=== PATIENT | female | born 1980 | race African-American/Black ===

== ENCOUNTER 2018-02-15 15:01 | Inpatient (IN) ==
[~2018-02-15 15:01] MED LIST: Ketorolac Inj 30 MG/ML (IVP) Vial IV.PUSH ONE; Phenylephrine/NS 1000 MCG/10ML Syringe IV.PUSH ONE
--- NOTE | 2018-02-15 15:28 | P.HPOB ---
History of Present Illness Primary Care Physician: Shabana Donahue MD Chief Complaint: contractions History of Present Illness: 38 yo with iup at 38w6d here for ob visit in office noted to have decreased movements and contractions. BPP 6/8, no breathing movements. SVE 3-4/50/-2, change from last week. PT was scheduled for primary cd for macrosomia, 6 lb 10 oz at 35 weeks; extrapolation would estimate 8 lb 10oz. Weeks Gestation:: 38 Para: 2 : 3 - Inpatient Certification I certify that the inpatient services were ordered in accordance with Medicare regulations governing the order. This includes certification that hospital inpatient services are reasonable and necessary and in the case of services not specified as inpatient-only under 42 CFR 419.22(n), that they are appropriately provided as inpatient services in accordance to with the 2-midnight benchmark under 43 CFR 412.3(e) Estimated Total Length of Stay (Days): 3 Plans for Post Hospital Care: Home Review of Systems All other systems reviewed negative except as stated in HPI Constitutional: Denies body ache(s), Denies chills Eyes: Denies blind spots, Denies blurry vision PMFSH - Tobacco History Second Hand Smoke Exposure: No Tobacco Use In Past 30 Days: No - Alcohol History How Often Do You Have a Drink Containing Alcohol: Never - Substance Use History Substance History: No History of Abuse - Travel History History of Recent Travel: No Recent Travel in the [place] Within the Last 8 Weeks: No Recent Travel Out of the Country Within the Last 8 Weeks: No Medications and Allergies Active Medications: Active Medications Cefazolin Sodium 2,000 mg/ (Sodium Chloride) 100 mls @ 200 mls/hr IV.SIG RANGER AIDE DENA Stop: 02/19/18 15:59 Allergies Allergy/AdvReac Type Severity Reaction Status Date / Time shellfish derived Allergy Severe ITCHING , Verified 01/28/18 18:32 swelling strawberry Allergy Severe Itching Verified 01/28/18 18:37 tomato Allergy Severe Itching, Verified 01/28/18 18:37 swelling tramadol Allergy Severe VOMITTING Verified 01/28/18 18:32 Home Medications Medication Instructions Recorded Confirmed Type PNV cmb#95-ferrous fumarate-FA 1 tab PO DAILY 02/15/18 02/15/18 History [] ranitidine HCl [Zantac] 150 mg PO BID 02/15/18 02/15/18 History Exam Vital signs: Vital Signs Pulse Resp BP 02/15/18 15:21 107 H 18 139/79 - Constitutional no acute distress - Routine HEENT Exam Head: Present: normocephalic Eye: Present: EOMI ENT: Present: mucous membranes moist - Routine Neck Exam Present: full ROM - Routine Chest/Breast/Axilla Exam Chest wall: Absent: tenderness - Routine Respiratory Exam Absent: accessory muscle use - Routine Cardiovascular Exam Present: RRR - Routine Abdominal Exam Absent: tenderness - Routine Extremities Exam Present: edema. Absent: cyanosis, clubbing, Rio's sign Results - Labs CBC & Chem 7: 02/15/18 15:30 Caprini VTE Risk Assessment Caprini VTE Risk Assessment: No/Low Risk (score <= 1) Caprini Risk Assessment Model: Point Value = 1 Point Value = 2 Point Value = 3 Point Value = 5 Age 41-60 Minor surgery BMI > 25 kg/m2 Swollen legs Varicose veins or History of unexplained or recurrent spontaneous Oral contraceptives or hormone replacement Sepsis (< 1 month) Serious lung disease, including pneumonia (< 1 month) Abnormal pulmonary function Acute myocardial infarction Congestive heart failure (< 1 month) History of inflammatory bowel disease Medical patient at bed rest Age 61-74 Arthroscopic surgery Major open surgery (> 45 min) Laparoscopic surgery (> 45 min) Malignancy Confined to bed (> 72 hours) Immobilizing plaster cast Central venous access Age >= 75 History of VTE Family history of VTE Factor V Leiden Prothrombin [id number] Lupus anticoagulant Anticardiolipin antibodies Elevated serum homocysteine Heparin-induced thrombocytopenia Other congenital or acquired thrombophilia Stroke (< 1 month) Elective arthroplasty Hip, pelvis, or leg fracture Acute spinal cord injury (< 1 month) Prophylaxis Regimen: Total Risk Factor Score Risk Level Prophylaxis Regimen 0-1 Low Early ambulation 2 Moderate Order ONE of the following: *Sequential Compression Device (SCD) *Heparin 5000 units SQ BID 3-4 Higher Order ONE of the following medications: *Heparin 5000 units SQ TID *Enoxaparin/Lovenox 40 mg SQ daily (WT < 150 kg, CrCl > 30 mL/min) *Enoxaparin/Lovenox 30 mg SQ daily (WT < 150 kg, CrCl > 10-29 mL/min) *Enoxaparin/Lovenox 30 mg SQ BID (WT < 150 kg, CrCl > 30 mL/min) AND/OR *Sequential Compression Device (SCD) 5 or more Highest Order ONE of the following medications: *Heparin 5000 units SQ TID (Preferred with Epidurals) *Enoxaparin/Lovenox 40 mg SQ daily (WT < 150 kg, CrCl > 30 mL/min) *Enoxaparin/Lovenox 30 mg SQ daily (WT < 150 kg, CrCl > 10-29 mL/min) *Enoxaparin/Lovenox 30 mg SQ BID (WT < 150 kg, CrCl > 30 mL/min) AND *Sequential Compression Device (SCD) Assessment and Plan - Diagnosis (1) Labor and delivery indication for care or intervention Code(s): O75.9 - Complication of labor and delivery, unspecified; J45.909 - Unspecified asthma, uncomplicated Status: Acute (2) Advanced maternal age (AMA) in Code(s): F41.9 - Anxiety disorder, unspecified Status: Acute (3) Anxiety Code(s): F41.9 - Anxiety disorder, unspecified Status: Chronic (4) Asthma Code(s): J45.909 - Unspecified asthma, uncomplicated Status: Chronic - Plan 38 yo with iup at 386d in labor. Desires primary CD due to suspected macrosomia. Was scheduled for tomorrow. Will proceed today with cd. She additionally has had decreased movement and bpp was 6/8 in the office today. AMA neg cfDNA nl anatomy u/s Anxiety- watch for pp anxiety/depression. Previously on citalopram Asthma- mild intermittent, albuterol prn reflux - zantac Proteinuria with no documented elevated BP GBS neg (4) Asthma Qualifiers: Asthma severity: mild Asthma persistence: intermittent Asthma complication type: uncomplicated Qualified Code(s): J45.20 - Mild intermittent asthma, uncomplicated
[2018-02-15] MEDS ORDERED: Citric Acid/Sodium Citrate Liq 30 ML UDC PO SCH (15:30)
[2018-02-15] MEDS ORDERED: ceFAZolin Inj 2,000 MG in Sodium Chlor 0.9% Inj 80 ML IV.SIG SCH (16:00)
[2018-02-15 16:09] LABS: Baso % (Auto) 0.4 % (0.0-2.0); Eos # (Auto) 0.1 th/mm3 (0.0-0.4); Eos % (Auto) 1.1 % (0.0-4.0); Hematocrit 39.7 % (35.0-46.0); Hemoglobin 13.6 gm/dL (11.6-15.3); Lymph # (Auto) 1.9 th/mm3 (1.0-4.8); Lymph % (Auto) 23.3 % (9.0-44.0); Mean Corpuscular HGB Conc 34.2 % (32.0-36.0); Mean Corpuscular Hemoglobin 30.5 pg (27.0-34.0); Mean Corpuscular Volume 89.1 fL (80.0-100.0); Mono # (Auto) 0.6 th/mm3 (0.0-0.9); Mono % (Auto) 7.8 % (0.0-8.0); Neut # (Auto) 5.5 th/mm3 (1.8-7.7); Neut % (Auto) 67.4 % (16.0-70.0); Platelet Count 223 th/mm3 (150-450); Red Blood Count 4.46 mil/mm3 (4.00-5.30); Red Cell Distribution Width 13.5 % (11.6-17.2); White Blood Count 8.2 th/mm3 (4.0-11.0)
[2018-02-15] MEDS ORDERED: Morphine Sulfate PF Inj 5 MG/10 ML Ampul ONE (16:55)
[2018-02-15 18:05] LABS: Amphetamine Screen,Urine Neg (Neg); Bacteria,Urine Rare /hpf; Barbiturate Screen,Urine Neg (Neg); Bilirubin,Urine Negative (Negative); Cannabinoid Screen,Urine Neg (Neg); Clarity,Urine Clear (Clear); Cocaine Screen,Urine Neg (Neg); Color,Urine Yellow (Yellw/Straw); Glucose,Urine (UA) Negative (Negative); Leukocyte Esterase,Urine Negative (Negative); Nitrite,Urine Negative (Negative); Squamous Epithelial Cell,Urine 3 /hpf (0-5)
[2018-02-15 18:18] LABS: Opiate Screen,Urine Neg (Neg)
[2018-02-15] MEDS ORDERED: Zolpidem Tartrate 5 MG Tablet PO PRN (18:25)
[2018-02-15] MEDS ORDERED: Oxytocin 30 Units/500ml Premix 30 UNITS/500 ML BAG IV.SIG ONE (18:25)
[2018-02-15] MEDS ORDERED: Simethicone 80 MG Chew Tablet PO PRN (18:25)
--- NOTE | 2018-02-15 18:30 | P.OBDELI ---
Procedure Note Performed by: Bailee Gillis MD Procedure: Primary Low Transverse Section Indication for Delivery: Other (elective primary, suspected macrosomia) Informed Consent Obtained: For anesthesia, For procedure Confirmed Correct: Patient, Procedure, Site, Time-out taken Anesthesia: Spinal Medication Prior to Procedure: As documented in eMAR Monitoring During Procedure: Blood pressure monitoring, Pulse oximetry Urinary Catheter: Inserted using sterile technique, To dependent drainage, ml urine output (50) Position: Supine with wedge to right side, Supine with safety belt applied - Operative Features Skin Incision: Pfannenstiel Uterine Incision: Low transverse w/knife / blunt ext Membranes Ruptured: Artificially, Appearance of fluid (clear) Presentation: Occiput anterior Status of Infant: Viable, Cord blood, Nursery present Placenta Delivered: Intact Medications: Antibiotics, Oxytocin Estimated blood loss (mL): 800 Procedure Tolerated: Well Maternal Condition: Stable Baby Condition: Stable Procedure in Detail: Complications: none Maternal intraoperative findings: normal uterus tubes, and left ovary. Right ovary surgically absent. No adhesions. Significant rectus diastasis Specimens: cord blood Dispo: to pacu Procedure in detail: After review of informed consent, pt was taken to the OR where spinal anesthesia was administered w/o complication. She had mcneil placed in sterile fashion. SCDs to bilateral extremities. Ancef 2 g IV given preincision. Abdomen and perineum were prepped and draped in sterile fashion. Spinal level tested and appeared adequate. A Pfannenstiel skin incision was made with the scalpel and carried down to the underlying layer of fascia with the bovie. The fascia was incised in the midline; this incision was extended bilaterally w Ward scissors. Patient was noted to have a significant rectus diastasis. The superior edge, followed by the inferior edge, of the fascia was grasped with ping clamps, elevated and from the rectus muscles with ward scissors and bluntly. Peritoneum was entered sharply. Bladder blade was inserted. A low transverse uterine incision was made with the scalpel and extended bluntly. Clear amniotic fluid noted. The head was flexed and brought to the level of the hysterotomy. Fundal pressure was used to deliver the head and the rest of the body readily followed. Cord blood collected. Delayed cord clamping of 45 seconds was performed. Baby was handed off to team. IV infusion of pitocin was started immediately after the delivery of the . The placenta was delivered with cord traction and uterine massage. The uterus was exteriorized . The uterine cavity was cleared with moistened laparotomy sponges. The uterus was repaired in two layers with number 1 chromic in a running locked fashion followed by an imbricating layer. The posterior cul de sac was irrigated and suctioned. The uterus was noted to be hemostatic. It was returned to the abdomen. The peritoneum was closed with 2-0 chromic in a running fashion. The fascia was closed with number 1 vicryl in a running fashion. Subcutaneous tissue was irrigated and hemostasis obtained w the bovie. The subcutaneous tissue was closed with 2-0 chromic in a running fashion. The skin was closed with 3-0 monocryl in a subcuticular fashion. Steristrips and sterile pressure dressing was placed. PT was sent to pacu in stable condition. - Infant : Male (apgars 8/9, weight 8 lb 11 oz)
[2018-02-15] MEDS ORDERED: Famotidine PF Inj 20 MG/2 ML Vial IV.PUSH ONE (23:15)
[2018-02-15] MEDS ORDERED: Oxytocin 30 Units/500ml Premix 30 UNITS/500 ML BAG IV.SIG PRN (23:25)
[2018-02-15] MEDS: Ketorolac Inj 30 MG/ML (IVP) Vial IV.PUSH PRN (23:43)
[2018-02-16 05:57] LABS: Baso % (Auto) 0.4 % (0.0-2.0); Eos % (Auto) 0.2 % (0.0-4.0); Hematocrit 31.5 % (35.0-46.0); Hemoglobin 10.4 gm/dL (11.6-15.3); Lymph # (Auto) 1.6 th/mm3 (1.0-4.8); Lymph % (Auto) 14.6 % (9.0-44.0); Mean Corpuscular Hemoglobin 29.9 pg (27.0-34.0); Mean Corpuscular Volume 90.6 fL (80.0-100.0); Mean Platelet Volume 8.8 fL (7.0-11.0); Mono # (Auto) 0.8 th/mm3 (0.0-0.9); Mono % (Auto) 6.9 % (0.0-8.0); Neut # (Auto) 8.8 th/mm3 (1.8-7.7); Neut % (Auto) 77.9 % (16.0-70.0); Platelet Count 175 th/mm3 (150-450); Red Blood Count 3.47 mil/mm3 (4.00-5.30); Red Cell Distribution Width 13.5 % (11.6-17.2); White Blood Count 11.2 th/mm3 (4.0-11.0)
[2018-02-16] MEDS: Ketorolac Inj 30 MG/ML (IVP) Vial IV.PUSH PRN (06:36)
--- NOTE | 2018-02-16 08:56 | P.PNOB ---
Subjective Post op day: 1 Interval history: POD#1, Stable, doing well Objective Vital Signs/I&O: Vital Signs 02/15/18 15:21 02/15/18 15:25 02/15/18 15:40 Temperature Pulse Rate 107 H 102 H 102 H Respiratory Rate 18 Blood Pressure 139/79 02/15/18 16:40 02/15/18 18:35 02/15/18 18:51 Temperature 97.8 F Pulse Rate 97 H 85 Respiratory Rate 18 Blood Pressure 109/54 L 132/63 02/15/18 18:52 02/15/18 19:05 02/15/18 19:20 Temperature Pulse Rate 86 88 93 H Respiratory Rate 17 20 16 Blood Pressure 107/55 L 102/53 L 02/15/18 19:37 02/15/18 20:20 02/16/18 00:00 Temperature 99.2 F 98.3 F Pulse Rate 82 68 68 Respiratory Rate 16 18 18 Blood Pressure 113/50 L 114/74 113/68 02/16/18 05:00 02/16/18 08:00 Temperature 98.7 F 98.2 F Pulse Rate 68 102 H Respiratory Rate 18 18 Blood Pressure 103/60 101/59 L Intake & Output 02/15/18 02/16/18 02/16/18 18:59 06:59 18:59 Intake Total 1000 / 1000 Balance 1000 / 1000 Weight 87 kg Intake: IV 1000 / 1000 LR 1000 mL Inj 1,000 ML @ 150 1000 / 1000 mls/hr IV.CONT .Q6H40M [facility] Rx#: [id number] Other: Weight On Admission 87 kg Result Diagrams: 02/16/18 05:09 Objective Remarks: GENERAL: Well-nourished, well-developed patient. CARDIOVASCULAR: Regular rate and rhythm without murmurs, gallops, or rubs. RESPIRATORY: Breath sounds equal bilaterally. No accessory muscle use. ABDOMEN/GI: Abdomen soft, non-tender, bowel sounds present. Incision: Clean, dry and intact.dressing inplace,dry Fundus: Firm, non-tender at umbilicus. GENITOURINARY: Light to moderate bleeding. EXTREMITIES: No cyanosis or edema, non-tender, without signs of DVT. Medications and IVs: Active Medications Albuterol (Ventolin Hfa Inh) 2 puff INH Q4H PRN PRN Reason: ASTHMA Citric Acid/Sodium Citrate (Sodium Citrate/Citric Acid Liq) 30 ml PO [facility] [facility] [facility] Stop: 02/19/18 15:29 Last Admin: 02/15/18 16:56 Dose: 30 ml Diphtheria/Pertussis/Tetanus Vacc (Boostrix Vaccine Inj) 0.5 ml IM .ONCE ONE Stop: 02/16/18 16:01 Cefazolin Sodium 2,000 mg/ (Sodium Chloride) 100 mls @ 200 mls/hr IV.SIG [facility] Stop: 02/19/18 15:59 Lactated Ringer's (Lr 1000 Ml Inj) 1,000 mls @ 150 mls/hr IV.CONT .Q6H40M [facility] Last Admin: 02/16/18 06:29 Dose: Not Given Oxytocin (Pitocin 30 Units/Ns 500 Ml Premix) 30 units in 500 mls @ 100 mls/hr IV.SIG PRN PRN PRN Reason: Heavy bleeding Stop: 02/16/18 23:24 Lactated Ringer's (Lr 1000 Ml Inj) 1,000 mls @ 100 mls/hr IV.CONT .Q10H [facility] Stop: 02/16/18 19:24 Last Admin: 02/16/18 06:27 Dose: Not Given Ibuprofen (Motrin) 600 mg PO Q6HR PRN PRN Reason: cramping Ketorolac Tromethamine (Toradol Inj) 30 mg IV.PUSH Q6H PRN PRN Reason: PAIN 1-10 IF UNABLE TO TAKE PO Stop: 02/20/18 23:08 Last Admin: 02/16/18 06:36 Dose: 30 mg Measles/Mumps/Rubella Vaccine Live (M-M-R Ii Vaccine Inj) 0.5 ml SQ .ONCE ONE Stop: 02/16/18 16:01 Methylergonovine Maleate (Methergine) 0.2 mg PO Q8H [facility] Stop: 02/16/18 15:01 Last Admin: 02/16/18 00:10 Dose: 0.2 mg Ondansetron HCl (Zofran Inj) 4 mg IV.PUSH Q6H PRN PRN Reason: NAUSEA OR VOMITING Oxycodone/Acetaminophen (Percocet 5/325 Mg) 2 tab PO Q4H PRN PRN Reason: PAIN SCALE 6 TO 10 Oxycodone/Acetaminophen (Percocet 5/325 Mg) 1 tab PO Q4H PRN PRN Reason: PAIN SCALE 3 TO 5 Promethazine HCl (Phenergan Inj) 25 mg IM Q6H PRN PRN Reason: NAUSEA Last Admin: 02/15/18 20:58 Dose: 25 mg Senna/Docusate Sodium (Daniella-Colace) 2 tab PO Q12H PRN PRN Reason: CONSTIPATION Simethicone (Mylicon Chew) 80 mg PO QID PRN PRN Reason: FLATULENCE Sodium Chloride (Ns Flush) 2 ml IV.FLUSH BID DENA Last Admin: 02/16/18 06:22 Dose: Not Given Sodium Chloride (Ns Flush) 2 ml IV.FLUSH PRN PRN PRN Reason: FLUSH AFTER USING IV ACCESS Zolpidem Tartrate (Ambien) 5 mg PO HS PRN PRN Reason: INSOMNIA Assessment and Plan - Plan 38 yo with iup at 386d in labor. Desires primary CD due to suspected macrosomia. Was scheduled for tomorrow. Will proceed today with cd. She additionally has had decreased movement and bpp was 6/8 in the office today. AMA neg cfDNA nl anatomy u/s Anxiety- watch for pp anxiety/depression. Previously on citalopram Asthma- mild intermittent, albuterol prn reflux - zantac Proteinuria with no documented elevated BP GBS neg 02/16/2018- POD#1; Stable doing well, advance care as tolerated Discharge Planning: Does not meet criteria
[2018-02-16] MEDS: Senna/Docusate Sodium 8.6/50 MG Tablet PO PRN (09:56)
[2018-02-16] MEDS: Ibuprofen 600 MG Tablet PO PRN ×2 (13:59→21:50)
[2018-02-16] MEDS ORDERED: Measles/Mumps/Rubella Vaccine Inj 0.5 ML Vial SQ ONE (16:00)
[2018-02-16] MEDS ORDERED: Diphtheria/Tetanus/Pertussis Vaccine Inj 0.5 ML Syringe IM ONE (16:00)
--- NOTE | 2018-02-16 20:05 | P.OBGPN ---
Queried PDMP and reviewed report
[2018-02-16 21:01] VITALS: TEMP 98
[2018-02-17] MEDS: Ibuprofen 600 MG Tablet PO PRN ×2 (06:41→13:15)
--- NOTE | 2018-02-17 07:16 | P.PNOB ---
Subjective Post op day: 2 Interval history: pt doing well, pain controlled with PO meds, ambulating, voiding, TPO diet, occasional nausea, VB < menses. Objective Vital Signs/I&O: Vital Signs 02/16/18 08:00 02/16/18 12:00 02/16/18 20:00 Temperature 98.2 F 98.2 F 98.0 F Pulse Rate 102 H 94 H 72 Respiratory Rate 18 18 18 Blood Pressure 101/59 L 93/64 L 109/63 02/17/18 02:14 02/17/18 06:41 Temperature Pulse Rate Respiratory Rate 20 18 Blood Pressure Result Diagrams: 02/16/18 05:09 Objective Remarks: GENERAL: Well-nourished, well-developed patient. CARDIOVASCULAR: Regular rate and rhythm without murmurs, gallops, or rubs. RESPIRATORY: Breath sounds equal bilaterally. No accessory muscle use. ABDOMEN/GI: Abdomen soft, non-tender, bowel sounds present. bandage Clean, dry and intact. Fundus: Firm, non-tender at umbilicus. GENITOURINARY: Light to moderate bleeding. EXTREMITIES: No cyanosis or edema, non-tender, without signs of DVT. Medications and IVs: Active Medications Albuterol (Ventolin Hfa Inh) 2 puff INH Q4H PRN PRN Reason: ASTHMA Citric Acid/Sodium Citrate (Sodium Citrate/Citric Acid Liq) 30 ml PO RESIDENT DIRECTOR [facility] Stop: 02/19/18 15:29 Last Admin: 02/15/18 16:56 Dose: 30 ml Cefazolin Sodium 2,000 mg/ (Sodium Chloride) 100 mls @ 200 mls/hr IV.SIG RESIDENT DIRECTOR [facility] Stop: 02/19/18 15:59 Lactated Ringer's (Lr 1000 Ml Inj) 1,000 mls @ 150 mls/hr IV.CONT .Q6H40M [facility] Last Admin: 02/16/18 06:29 Dose: Not Given Ibuprofen (Motrin) 600 mg PO Q6HR PRN PRN Reason: cramping Last Admin: 02/17/18 06:41 Dose: 600 mg Ketorolac Tromethamine (Toradol Inj) 30 mg IV.PUSH Q6H PRN PRN Reason: PAIN 1-10 IF UNABLE TO TAKE PO Stop: 02/20/18 23:08 Last Admin: 02/16/18 06:36 Dose: 30 mg Ondansetron HCl (Zofran Inj) 4 mg IV.PUSH Q6H PRN PRN Reason: NAUSEA OR VOMITING Oxycodone/Acetaminophen (Percocet 5/325 Mg) 2 tab PO Q4H PRN PRN Reason: PAIN SCALE 6 TO 10 Last Admin: 02/17/18 06:40 Dose: 2 tab Oxycodone/Acetaminophen (Percocet 5/325 Mg) 1 tab PO Q4H PRN PRN Reason: PAIN SCALE 3 TO 5 Promethazine HCl (Phenergan Inj) 25 mg IM Q6H PRN PRN Reason: NAUSEA Last Admin: 02/15/18 20:58 Dose: 25 mg Senna/Docusate Sodium (Daniella-Colace) 2 tab PO Q12H PRN PRN Reason: CONSTIPATION Last Admin: 02/16/18 09:56 Dose: 2 tab Simethicone (Mylicon Chew) 80 mg PO QID PRN PRN Reason: FLATULENCE Last Admin: 02/16/18 13:59 Dose: 80 mg Sodium Chloride (Ns Flush) 2 ml IV.FLUSH BID DENA Last Admin: 02/17/18 00:18 Dose: Not Given Sodium Chloride (Ns Flush) 2 ml IV.FLUSH PRN PRN PRN Reason: FLUSH AFTER USING IV ACCESS Zolpidem Tartrate (Ambien) 5 mg PO HS PRN PRN Reason: INSOMNIA Assessment and Plan - Plan 38 yo s/p PLTCS at 38w6d for suspected macrosomia 1. POD #2: AF, VSS, desires d/c home today, discussed / post op expectations, precautions and folllow up. - Male , circ today. - Pt with nursing assistance to remove dressing prior to d/c. 2. Asthma: well controlled 3. JAVI: doing well, follow up closely Discharge Planning: Does not meet criteria
--- NOTE | 2018-02-17 07:17 | P.DS ---
Date of admission: 02/15/18 15:01 Primary care physician: Shabana oDnahue MD Brief History from admission: 38 yo who underwent primary for suspected macrosomia, see H&P and op note for further details, did well and d/c on POD #2 w/o issues. DS: Medications - Discharge Medications Prescriptions: ibuprofen [Motrin IB] 600 mg PO TID-QID PRN #30 tab PRN Reason: Pain oxycodone-acetaminophen [Percocet] 1 tab PO Q4-6H PRN #20 tab PRN Reason: Pain DS: Summary Hospital Course: see brief summary - Time Spent with Patient Total time spent providing and/or coordinating discharge services: Less than 30 minutes Exam Vital signs: Vital Signs 02/16/18 08:00 02/16/18 12:00 02/16/18 20:00 Temperature 98.2 F 98.2 F 98.0 F Pulse Rate 102 H 94 H 72 Respiratory Rate 18 18 18 Blood Pressure 101/59 L 93/64 L 109/63 02/17/18 02:14 02/17/18 06:41 Temperature Pulse Rate Respiratory Rate 20 18 Blood Pressure Results Procedures completed during hospitalization: primary Discharge Plan - Discharge Disposition Patient Disposition: 01 Discharge Home - Discharge Condition Condition: Good - Discharge Order Discharge Orders: Discharge Order (Routine); Ordered 02/17/18 Ordered By: Brett Ernst - Discharge Details Anticipated Discharge Date: 02/17/18 - Physicians Team Primary Care Provider: Shabana Donahue Attending Provider: Bailee Gillis - Rxs /Orders / Referrals /Forms Prescriptions: New ibuprofen [Motrin IB] 200 mg Tablet 600 mg PO TID-QID PRN (Reason: Pain) Qty: 30 RF: 1 oxycodone-acetaminophen [Percocet] 5-325 mg Tablet 1 tab PO Q4-6H PRN (Reason: Pain) Qty: 20 RF: 0 Continue PNV cmb#95-ferrous fumarate-FA [] 28 mg iron- 800 mcg Tablet 1 tab PO DAILY Discontinued ranitidine HCl [Zantac] 150 mg Tablet 150 mg PO BID Referrals: Bailee Gillis MD [Physician] - See Instructions - Discharge Instructions Patient Printed Instructions: (DC) - Post Discharge Care Plan Care Plan Goals: Congratulations on your new baby! We want your recovery to be serna and trouble free. Please Report the Following Symptoms to Your Doctor: -Temperature above 100.5 degrees -Redness of incision or excessive or foul smelling drainage -Unusual pain or calf pain -Increased vaginal bleeding -Painful or difficulty urinating -Feelings of extreme sadness or anxiety Goals to Promote Your Health * To prevent worsening of your condition and complications * To maintain your health at the optimal level Directions to Meet Your Goals Take your medications as prescribed Follow your dietary instruction Follow activity as directed Ensure plenty of rest for recovery Drink fluids for hydration Keep your appointments as scheduled Take your immunizations and boosters as scheduled If your symptoms worsen call your OB Physician, or go to an Urgent Care Center or Emergency Room Smoking is Dangerous to your health. Avoid second hand smoke Call the 24-hour crisis hotline for domestic abuse at
[2018-02-17 08:49] VITALS: BP 108/62; PULSE 88; RESP 16
[2018-02-17] MEDS: Senna/Docusate Sodium 8.6/50 MG Tablet PO PRN (11:22)
== END 2018-02-17 14:17 | disposition home or self-care (01) ==
LOC: H2E 15:01 → H1EA 19:45
PROVIDERS: ADMIT Obstetrics & Gynecology; ATTEND Obstetrics & Gynecology